=== PATIENT | female | born 1985 | race Caucasian/White ===

== ENCOUNTER 2018-08-29 03:12 | Emergency (ER) | payer MEDICAID ==
--- NOTE | 2018-08-29 03:35 | EDM.PDOC ---
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 Is been going on 6 or 7 weeks. The patient had an novaring placed and seems to have had discharge ever since then. Patient was seen in the clinic couple weeks ago and started on doxycycline the patient finished this course but it did not seem to help. Patient denies any burning or frequency with urination. She denies any fevers or chills. Lower Abdomen Pain Score (Numeric/FACES): 6 - Related Data Allergies Allergy/AdvReac Type Severity Reaction Status Date / Time No Known Allergies Allergy Verified 03/29/18 08:41 Home Meds: Home Meds Levonorgestrel [Mirena] 1 each IY ASDIRECTED 08/29/18 [History] metroNIDAZOLE [Flagyl] 500 mg PO Q8H #21 tablet 08/29/18 [Rx] Past Medical History - Past Health History Medical/Surgical History: Denies Medical/Surgical History - Past Surgical History GI Surgical History: Reports: Other (See Below) (Previous laparoscopy performed today 17 for investigation of endometriosis.) Social & Family History - Tobacco Use Smoking Status *Q: Current Every Day Smoker Years of Tobacco use: 14 Packs/Tins Daily: 0.2 - Caffeine Use Caffeine Use: Reports: Coffee - Recreational Drug Use Recreational Drug Use: No - Living Situation & Occupation Living situation: Reports: Single Occupation: Unemployed ED ROS GENERAL - Review of Systems Review Of Systems: See Below Constitutional: Reports: No Symptoms HEENT: Reports: No Symptoms Respiratory: Reports: No Symptoms Cardiovascular: Reports: No Symptoms Endocrine: Reports: No Symptoms GI/Abdominal: Reports: No Symptoms : Reports: Discharge. Denies: Dysuria, Flank Pain, Frequency, Urgency Musculoskeletal: Reports: No Symptoms Skin: Reports: No Symptoms Neurological: Reports: No Symptoms ED EXAM, GI/ABD - Physical Exam Exam: See Below Exam Limited By: No Limitations General Appearance: Alert, No Apparent Distress Course - Vital Signs Last Recorded V/S: Last Vital Signs Temp 36.9 C 08/29/18 03:25 Pulse 109 H 08/29/18 03:25 Resp 18 08/29/18 03:25 BP 137/97 H 08/29/18 03:25 Pulse Ox 100 08/29/18 03:25 - Orders/Labs/Meds Labs: Laboratory Tests 08/29/18 08/29/18 08/29/18 Range/Units 04:00 04:06 04:06 Urine Color Yellow (Yellow) Urine Appearance Cloudy H (Clear) Urine pH 7.0 (5.0-8.0) Ur Specific [place] 1.020 (1.005-1.030) Urine Protein Negative (Negative) Urine Glucose (UA) Negative (Negative) Urine Ketones Negative (Negative) Urine Occult Blood Trace-intact H (Negative) Urine Nitrite Negative (Negative) Urine Bilirubin Negative (Negative) Urine Urobilinogen 0.2 (0.2-1.0) Ur Leukocyte Esterase Negative (Negative) Urine RBC 0-5 (0-5) /hpf Urine WBC 0-5 (0-5) /hpf Ur Squamous Epith Cells 0-5 (0-5) /hpf Amorphous Sediment Moderate H (NOT SEEN) /hpf Urine Bacteria Few (FEW) /hpf Urine Mucus Few (FEW) /hpf Urine HCG, Qual Negative (NEGATIVE) C trachomatis DNA (PCR) Not detected N gonorrhoeae DNA (PCR) Not detected - Re-Assessments/Exams Free Text/Narrative Re-Assessment/Exam: 08/29/18 06:37 Wet mount suggestive of bacterial vaginosis with clue cells present. We still have not received the HERBERT. GC and Chlamydia are negative 08/29/18 06:49 Finally of the HERBERT back it's negative patient will be treated for bacterial vaginosis Departure - Departure Time of Disposition: 06:53 Disposition: Home, Self-Care 01 Clinical Impression: BV (bacterial vaginosis) - Discharge Information Prescriptions: metroNIDAZOLE [Flagyl] 500 mg PO Q8H #21 tablet Referrals: PCP,None [Primary Care Provider] - Forms: ED Department Discharge Additional Instructions: Return to the emergency room with any questions problems worsening symptoms. 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 Take the antibiotics as directed
[2018-08-29 05:52] LABS: C. TRACHOMATIS BY PCR NOT DETECTED; N. GONORRHOEAE BY PCR NOT DETECTED
== END 2018-08-29 07:00 | disposition home or self-care (01) ==
LOC: JD.ED 03:12
DX: N76.0 Acute vaginitis (principal); F17.210 Nicotine dependence, cigarettes, uncomplicated
CPT/HCPCS: 81001; 81025; 87210; 87491; 87591; 87808; 99283; 99284